=== PATIENT | female | born 1975 | race African-American/Black ===

== ENCOUNTER 2016-06-11 16:54 | Emergency (ER) | payer OTHER ==
[~2016-06-11] VITALS: Ht 157.5 cm; Wt 75.0 kg
[~2016-06-11 16:54] MED LIST: Z.0.NO CURRENT MEDS
[2016-06-11 16:55] VITALS: BP 135/91; PULSE 105; RESP 18; TEMP 98.7; O2SAT 98
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
[2016-06-11] MEDS ORDERED: NAPR500 PO (19:56)
[2016-06-11] MEDS ORDERED: CYCL1TAB29 PO (19:56)
== END 2016-06-11 20:19 | disposition home or self-care (01) ==
LOC: NEPB 16:54
DX: S39.012A Strain of muscle, fascia and tendon of lower back, initial encounter (principal); M79.1 Myalgia; M54.89 Other dorsalgia; V43.52XA Car driver injured in collision with other type car in traffic accident, initial encounter; Y93.89 Activity, other specified; Y92.488 Other paved roadways as the place of occurrence of the external cause
CPT/HCPCS: 99283